=== PATIENT | female | born 1995 | race African-American/Black ===

== ENCOUNTER 2016-08-29 21:32 | Emergency (ER) | payer OTHER ==
[~2016-08-29] VITALS: Ht 162.6 cm; Wt 49.0 kg
[2016-08-29] MEDS ORDERED: TRINATE TABLET1 TAB PO (21:59)
[2016-08-29 22:10] LABS: URINE BILIRUBIN NEGATIVE (Negative); URINE BLOOD NEGATIVE (Negative); URINE COLOR YELLOW; URINE GLUCOSE-RANDOM* NEGATIVE (Negative); URINE KETONES NEGATIVE (Negative); URINE NITRITE NEGATIVE (Negative); URINE PROTEIN (DIPSTICK) 1+ (Negative)
[2016-08-29 22:20] LABS: CASTS None Seen /LPF (None Seen); CRYSTALS None Seen /LPF (None Seen); SQUAMOUS 4-10 Moderate /LPF (0-3); URINE WBC 0-5 Rare /HPF (0-5)
[2016-08-29 22:21] LABS: URINE RBC None Seen /HPF (0-2)
[2016-08-29] MEDS ORDERED: ONDANSETRON HCL4 M2 PO (23:13)
[2016-08-29 23:29] VITALS: BP 119/72
== END 2016-08-29 23:30 | disposition home or self-care (01) ==
LOC: ER 21:32
PROVIDERS: Nurse Practitioner
DX: O21.8 Other vomiting complicating pregnancy (principal); Z3A.09 9 weeks gestation of pregnancy; Z91.018 Allergy to other foods